=== PATIENT | female | born 1995 | race Caucasian/White ===

== ENCOUNTER 2022-06-14 18:18 | Observation (INO) | payer OTHER ==
[2022-06-14 18:52] VITALS: BMI 39.4
[2022-06-14] MEDS ORDERED: Famotidine/PF 20 mg/2ml Vial SLOW IVP SCH (19:45)
[2022-06-14] MEDS ORDERED: Lactated Ringer's 1,000 ML IV SCH (19:45)
[2022-06-14] MEDS ORDERED: Ondansetron PF 4 MG/2 ML Vial IVP SCH (19:45)
[2022-06-14] MEDS ORDERED: Ondansetron HCl/PF 4 MG in Sodium Chloride 0.9% 50 ML IVPB SCH (19:45)
[2022-06-14 20:05] LABS: #Eosinphils 0.1 10x3/uL (0.0-0.5); #Monocytes 0.3 10x3/uL (0.0-1.1); #Neutrophils 7.5 10x3/uL (1.5-8.4); %Basophils 0.2 % (0.0-2.0); %Eosinophils 0.9 % (0.0-6.0); %Lymphocytes 7.7 % (18.0-47.0); %Monocytes 3.3 % (0.0-10.0); %Neutrophils 87.4 % (40.0-75.0); Mean Corpuscular HGB CONC 32.1 g/dL (32.0-36.0); Mean Corpuscular Hemoglobin 23.7 pg (27.0-33.0); Mean Corpuscular Volume 73.9 fl (81.6-98.3); Mean Platelet Volume 11.2 fl (7.4-10.4); Platelet Count 292 10x3/uL (150-450); RBC Distribution Width 17.4 % (11.5-14.5); Red Blood Cell (RBC) Count 4.22 10x6/uL (3.90-5.03); White Blood Cell (WBC) Count 8.6 10x3/uL (3.5-10.5)
[2022-06-14] MEDS ORDERED: Morphine 4 MG/ML VIAL SLOW IVP SCH (20:30)
[2022-06-14 20:36] LABS: ALT (SGPT) 6 U/L (8-55); AST (SGOT) 11 U/L (5-34); Albumin 3.8 g/dL (3.5-5.0); Alkaline Phosphatase 87 U/L (40-110); Anion Gap 16 mmol/L (10-20); BUN (Urea Nitrogen) 4 mg/dL (7.0-18.7); Bilirubin, Total 0.6 mg/dL (0.2-1.2); Calc. Creatinine Clearance 238 mL/min (70-130); Carbon Dioxide 18 mmol/L (22-29); Chloride 105 mmol/L (98-107); Estimated GFR 126; Globulin 3.1 g/dL (2.4-3.5); Glucose 98 mg/dL (70-105); Potassium 3.7 mmol/L (3.5-5.1); Protein, Total 6.9 g/dL (6.0-8.3); Sodium 135 mmol/L (136-145)
[2022-06-14 21:19] LABS: Bilirubin 1+ (Negative); Blood, Urine Negative (Negative); CAUTI Indications for Culture Pregnancy; Clarity Clear (Clear); Glucose, Urine (Dipstick) Normal (Negative); Ketone, Urine 150 mg/dL (Negative); Leukocyte 25 (Negative); Nitrite Negative (Negative); Protein, Urine (Dipstick) 30 mg/dl (Neg-Trace); pH, Urine 6.5 (5.0-9.0)
[2022-06-14 21:30] LABS: Urine Culture Reflex Yes Yes
[2022-06-14 21:33] LABS: RBC/HPF 0-3 HPF (0-3); Squamous Epithelial 0-3 HPF (0-3); WBC/HPF 0-3 HPF (0-3)
[2022-06-14 21:34] LABS: Bacteria/HPF 1+ HPF (None Seen); Renal Epithelial None Seen HPF (None Seen)
[2022-06-14] MEDS ORDERED: cefTRIAXone\\ROCEPHIN 1 GM in Sodium Chloride 0.9% 100 ML IVPB SCH (21:45)
[2022-06-14] MEDS ORDERED: Dextrose 5%-Lactated Ringers 1,000 ML IV SCH ×2 (21:45→23:45)
[2022-06-14] MEDS ORDERED: Acetaminophen 325 MG TAB PO SCH (22:00)
[2022-06-14] MEDS ORDERED: Acetaminophen 325 MG TAB PO PRN (23:30)
[2022-06-14] MEDS ORDERED: Ondansetron PF 4 MG/2 ML Vial IVP PRN ×2 (23:30)
[2022-06-14] MEDS ORDERED: hydrALAZINE 20 MG/ML VIAL SLOW IVP PRN (23:30)
[2022-06-14] MEDS ORDERED: Morphine 4 MG/ML VIAL SLOW IVP PRN (23:41)
[2022-06-15 03:51] LABS: #Eosinphils 0.1 10x3/uL (0.0-0.5); #Monocytes 0.3 10x3/uL (0.0-1.1); #Neutrophils 4.1 10x3/uL (1.5-8.4); %Basophils 0.2 % (0.0-2.0); %Lymphocytes 21.3 % (18.0-47.0); %Monocytes 5.1 % (0.0-10.0); %Neutrophils 71.9 % (40.0-75.0); Hemoglobin 7.8 g/dL (12.0-15.5); Mean Corpuscular HGB CONC 30.5 g/dL (32.0-36.0); Mean Corpuscular Hemoglobin 23.2 pg (27.0-33.0); Mean Corpuscular Volume 76.2 fl (81.6-98.3); Mean Platelet Volume 11.6 fl (7.4-10.4); Platelet Count 241 10x3/uL (150-450); RBC Distribution Width 17.5 % (11.5-14.5); Red Blood Cell (RBC) Count 3.36 10x6/uL (3.90-5.03); White Blood Cell (WBC) Count 5.7 10x3/uL (3.5-10.5)
[2022-06-15 04:03] LABS: ALT (SGPT) Less than 6 U/L (8-55); AST (SGOT) 9 U/L (5-34); Albumin 2.9 g/dL (3.5-5.0); Alkaline Phosphatase 64 U/L (40-110); Anion Gap 10 mmol/L (10-20); BUN (Urea Nitrogen) Less than 4 mg/dL (7.0-18.7); Bilirubin, Total 0.3 mg/dL (0.2-1.2); Calc. Creatinine Clearance 255 mL/min (70-130); Calcium 8.4 mg/dL (7.8-10.44); Carbon Dioxide 22 mmol/L (22-29); Chloride 107 mmol/L (98-107); Estimated GFR 129; Globulin 2.7 g/dL (2.4-3.5); Glucose 103 mg/dL (70-105); Potassium 3.3 mmol/L (3.5-5.1); Protein, Total 5.6 g/dL (6.0-8.3); Sodium 136 mmol/L (136-145)
[2022-06-15] MEDS ORDERED: Metoclopramide HCl 10 MG/2 ML VIAL IVP SCH (06:00)
[2022-06-15] MEDS ORDERED: Potassium Chloride 10 MEQ in Premix Bag 1 BAG IVPB SCH (07:30)
[2022-06-15] MEDS ORDERED: Famotidine/PF 20 mg/2ml Vial SLOW IVP SCH (09:00)
== END 2022-06-15 11:38 | disposition home health service (06) ==
LOC: CSHLD/OP 18:18 → INTOOBSV 23:49 → CSHLD 23:49
PROVIDERS: ADMIT Obstetrics & Gynecology; ATTEND Obstetrics & Gynecology
DX: O21.1 Hyperemesis gravidarum with metabolic disturbance (principal); O99.512 Diseases of the respiratory system complicating pregnancy, second trimester; J45.909 Unspecified asthma, uncomplicated; O99.612 Diseases of the digestive system complicating pregnancy, second trimester; K80.20 Calculus of gallbladder without cholecystitis without obstruction; O23.42 Unspecified infection of urinary tract in pregnancy, second trimester; N39.0 Urinary tract infection, site not specified; O99.282 Endocrine, nutritional and metabolic diseases complicating pregnancy, second trimester; E86.0 Dehydration; Z3A.22 22 weeks gestation of pregnancy
CPT/HCPCS: 36415; 76705; 80053; 81001; 85025; 87086; 99285; J2270; J2405; J2765; J3480; S0028

== ENCOUNTER 2022-07-23 14:45 | Day surgery (SDC) | payer OTHER | END 2022-07-23 16:20 | disposition home or self-care (01) | LOC: CSHSDC/OP 14:45 | PROVIDERS: ATTEND Obstetrics & Gynecology | DX: O36.0190 Maternal care for anti-D [Rh] antibodies, unspecified trimester, not applicable or unspecified (principal); Z3A.28 28 weeks gestation of pregnancy ==

== ENCOUNTER 2022-10-04 16:08 | Day surgery (SDC) | payer OTHER ==
[2022-10-04 16:35] VITALS: BMI 39.9
[2022-10-04] MEDS ORDERED: hydrALAZINE 20 MG/ML VIAL SLOW IVP PRN (17:10)
[2022-10-04] MEDS ORDERED: Lactated Ringer's 1,000 ML IV SCH (17:30)
[2022-10-04] MEDS ORDERED: Morphine 4 MG/ML VIAL SLOW IVP SCH (18:00)
[2022-10-04] MEDS ORDERED: Acetaminophen 325 MG TAB PO SCH (18:00)
[2022-10-04 18:53] LABS: Bilirubin Neg (Negative); Blood, Urine Negative (Negative); Clarity Clear (Clear); Glucose, Urine (Dipstick) Normal (Negative); Ketone, Urine Negative (Negative); Leukocyte Negative (Negative); Nitrite Negative (Negative); Protein, Urine (Dipstick) Negative (Neg-Trace); Specific Gravity, Urine 1.025 (1.005-1.030); Urobilinogen Normal mg/dL (Less than 2)
[2022-10-04 19:02] LABS: Bacteria/HPF None Seen HPF (None Seen); CAUTI Indications for Culture Pregnancy; RBC/HPF None Seen HPF (0-3); Squamous Epithelial 21-50 HPF (0-3); WBC/HPF 0-3 HPF (0-3)
[2022-10-04 19:04] LABS: Urine Culture Reflex Yes Yes
== END 2022-10-04 19:20 | disposition home or self-care (01) ==
LOC: CSHLD/OP 16:08
PROVIDERS: ATTEND Obstetrics & Gynecology
DX: O26.893 Other specified pregnancy related conditions, third trimester (principal); O99.343 Other mental disorders complicating pregnancy, third trimester; F41.9 Anxiety disorder, unspecified; F32.A Depression, unspecified; O99.513 Diseases of the respiratory system complicating pregnancy, third trimester; J45.909 Unspecified asthma, uncomplicated; O99.613 Diseases of the digestive system complicating pregnancy, third trimester; K80.20 Calculus of gallbladder without cholecystitis without obstruction; O21.2 Late vomiting of pregnancy; Z79.899 Other long term (current) drug therapy; Z3A.38 38 weeks gestation of pregnancy
CPT/HCPCS: 81001; 87086; 99282

== ENCOUNTER 2022-10-12 06:00 | Inpatient (IN) | payer OTHER ==
[~2022-10-12 06:00] MED LIST: Acetaminophen 500 MG TAB PO PRN; Butorphanol Tartrate 1 MG/ML VIAL SLOW IVP PRN; Carboprost 250 MCG/ML AMP IM PRN; Diphenoxylate HCl/Atropine Tablet PO PRN; HYDROcodone/Acetaminophen 5/325 mg Tablet PO PRN; Ibuprofen 800 MG TAB PO PRN; Lactated Ringer's 1,000 ML IV SCH; Lidocaine 1% (PF) 30 ML VIAL SC PRN; Methylergonovine 0.2 MG/ML VIAL IM PRN; Misoprostol 100 MCG TAB VAG SCH; Misoprostol 200 MCG TAB PR PRN; NS w/ Oxytocin 30 units 500 ML IV SCH; Ondansetron PF 4 MG/2 ML Vial IVP PRN; Promethazine HCl 25 MG/ML VIAL IM PRN; Tranexamic Acid 1,000 MG/10 ML VIAL IVP PRN; hydrALAZINE 20 MG/ML VIAL SLOW IVP PRN
[2022-10-12] MEDS ORDERED: fentaNYL 50 mcg/mL 1 mL Vial SLOW IVP PRN (06:31)
[2022-10-12] MEDS ORDERED: Bupivacaine HCl 0.5%/Epinephrine 1:200,000/PF 30 ml Vial ONE (08:00)
[2022-10-12] MEDS ORDERED: Bupivacaine 0.25% HCL 30 ML VIAL ONE (08:00)
[2022-10-12 18:05] LABS: Hemoglobin 8.1 g/dL (12.0-15.5); Mean Corpuscular HGB CONC 28.9 g/dL (32.0-36.0); Mean Corpuscular Hemoglobin 19.8 pg (27.0-33.0); Mean Corpuscular Volume 68.5 fl (81.6-98.3); Mean Platelet Volume 11.2 fl (7.4-10.4); Platelet Count 279 10x3/uL (150-450); RBC Distribution Width 17.5 % (11.5-14.5); Red Blood Cell (RBC) Count 4.09 10x6/uL (3.90-5.03); White Blood Cell (WBC) Count 11.5 10x3/uL (3.5-10.5)
[2022-10-12 18:27] LABS: HBSAg Index 0.12 S/CO (0-0.99); Hep B Surf Ag - L&D Non-Reactive S/CO (NonReactive)
[2022-10-12 18:28] LABS: Syphilis Antibody Nonreactive (Nonreactive); Syphilis Antibody Index 0.04 S/CO (<1.00 Non-Reactive)
[2022-10-12 18:49] VITALS: BMI 40.1
[2022-10-12] MEDS ORDERED: Fentanyl 2 mcg/Bup 0.1% Cadd 100 ML ONE (20:21)
[2022-10-12] MEDS ORDERED: Ondansetron PF 4 MG/2 ML Vial IVP PRN (21:03)
[2022-10-12] MEDS ORDERED: Naloxone HCl 0.4 mg/ml Vial IVP PRN ×2 (21:03)
[2022-10-12] MEDS ORDERED: Promethazine HCl 25 MG/ML VIAL IM PRN (21:03)
[2022-10-12] MEDS ORDERED: Acetaminophen 325 MG TAB PO PRN (21:03)
[2022-10-12] MEDS ORDERED: ePHEDrine Sulfate 50 MG/10 ML VIAL SLOW IVP PRN (21:03)
[2022-10-12] MEDS ORDERED: diphenhydrAMINE 50 MG/ML VIAL IVP PRN (21:03)
[2022-10-12] MEDS ORDERED: Moisturizing Cream (Eucerin) 113 GM JAR TOP PRN (21:03)
[2022-10-12] MEDS ORDERED: Lactated Ringer's 500 ML IV PRN (21:03)
[2022-10-12] MEDS ORDERED: Communication Order-Pharmacy FS SCH (21:15)
[2022-10-13] MEDS: Fentanyl 2 mcg/Bupivacaine 0.1% Cassette 100 ML EPIDURAL SCH ×2 (04:45→11:34)
[2022-10-13] MEDS ORDERED: Misoprostol 200 MCG TAB ONE (13:46)
[2022-10-13] MEDS ORDERED: Lidocaine 1% (PF) 30 ML VIAL ONE (13:50)
[2022-10-13] MEDS ORDERED: Ibuprofen 800 MG TAB PO PRN (15:05)
[2022-10-13] MEDS ORDERED: NS w/ Oxytocin 30 units 500 ML IV SCH (15:45)
[2022-10-13] MEDS ORDERED: hydrALAZINE 20 MG/ML VIAL SLOW IVP PRN (15:45)
[2022-10-13] MEDS ORDERED: Milk Of Magnesia 30 ML UDCUP PO PRN (15:45)
[2022-10-13] MEDS ORDERED: Bisacodyl 10 MG SUPP PR PRN (15:45)
[2022-10-13] MEDS ORDERED: Measles/Mumps/Rubella 10 MCG/0.5 ML VIAL SC ONE (15:45)
[2022-10-13] MEDS ORDERED: diphenhydrAMINE 25 MG CAP PO PRN (15:45)
[2022-10-13] MEDS ORDERED: Promethazine HCl 25 MG/ML VIAL IM PRN (15:45)
[2022-10-13] MEDS ORDERED: Zolpidem Tartrate 5 MG TAB PO PRN (15:45)
[2022-10-13] MEDS ORDERED: Ondansetron PF 4 MG/2 ML Vial IVP PRN (15:45)
[2022-10-13] MEDS ORDERED: Boostrix 0.5 ML (Tdap) VIAL (>/=7 yrs of age) IM ONE (15:45)
[2022-10-13] MEDS ORDERED: Misoprostol 200 MCG TAB VAG PRN (15:45)
[2022-10-13] MEDS ORDERED: Benzocaine-Menthol 82.5 ML CAN TOP PRN (15:45)
[2022-10-13] MEDS ORDERED: Methylergonovine 0.2 MG/ML VIAL IM PRN (15:45)
[2022-10-13] MEDS ORDERED: Preparation H Ointment 28 GM TUBE PR PRN (15:45)
[2022-10-13] MEDS ORDERED: Lanolin Ointment 7 GM TUBE TOP PRN (15:45)
[2022-10-13] MEDS: HYDROcodone/Acetaminophen 5/325 mg Tablet PO PRN (17:25)
[2022-10-13] MEDS: Ferrous Sulfate 325 MG TAB PO SCH (17:30)
[2022-10-13] MEDS: Ibuprofen 800 MG TAB PO SCH (21:25)
[2022-10-13] MEDS: Docusate 100 MG CAP PO SCH (21:25)
[2022-10-14] MEDS: HYDROcodone/Acetaminophen 5/325 mg Tablet PO PRN ×5 (00:11→23:01)
[2022-10-14 04:45] LABS: Hemoglobin 7.2 g/dL (12.0-15.5); Mean Corpuscular HGB CONC 28.7 g/dL (32.0-36.0); Mean Corpuscular Hemoglobin 19.8 pg (27.0-33.0); Mean Corpuscular Volume 69.1 fl (81.6-98.3); Mean Platelet Volume 11.6 fl (7.4-10.4); Platelet Count 272 10x3/uL (150-450); RBC Distribution Width 17.3 % (11.5-14.5); Red Blood Cell (RBC) Count 3.63 10x6/uL (3.90-5.03); White Blood Cell (WBC) Count 11.1 10x3/uL (3.5-10.5)
[2022-10-14] MEDS: Ibuprofen 800 MG TAB PO SCH ×3 (05:15→20:04)
[2022-10-14] MEDS: Prenatal Vitamin 1 TAB PO SCH (08:00)
[2022-10-14] MEDS: Ferrous Sulfate 325 MG TAB PO SCH ×2 (08:02→20:06)
[2022-10-14] MEDS: Docusate 100 MG CAP PO SCH ×2 (08:02→20:04)
[2022-10-15] MEDS: Ibuprofen 800 MG TAB PO SCH ×2 (03:42→13:02)
[2022-10-15 08:40] VITALS: BP 119/71; TEMP 98
[2022-10-15] MEDS: Ferrous Sulfate 325 MG TAB PO SCH (08:48)
[2022-10-15] MEDS: Docusate 100 MG CAP PO SCH (08:48)
[2022-10-15] MEDS: HYDROcodone/Acetaminophen 5/325 mg Tablet PO PRN (08:48)
[2022-10-15] MEDS: Prenatal Vitamin 1 TAB PO SCH (08:49)
== END 2022-10-15 14:20 | disposition home or self-care (01) | DRG 807 ==
LOC: CSHLD 17:06 → CSHPP 10-13 16:06
PROVIDERS: ADMIT Obstetrics & Gynecology; ATTEND Obstetrics & Gynecology
PROC: 10E0XZZ Delivery of Products of Conception, External Approach (ICD-10-PCS; principal; 2022-10-13)
PROC: 10907ZC Drainage of Amniotic Fluid, Therapeutic from Products of Conception, Via Natural or Artificial Opening (ICD-10-PCS; 2022-10-13)
PROC: 10H07YZ Insertion of Other Device into Products of Conception, Via Natural or Artificial Opening (ICD-10-PCS; 2022-10-13)
DX: O26.893 Other specified pregnancy related conditions, third trimester (principal); Z37.0 Single live birth; Z67.11 Type A blood, Rh negative; O71.82 Other specified trauma to perineum and vulva; Z3A.39 39 weeks gestation of pregnancy
CPT/HCPCS: 36415; 85027; 86780; 86850; 86900; 86901; 87340; J2001; S0020

== ENCOUNTER 2023-02-05 08:54 | Emergency (ER) | payer OTHER ==
[2023-02-05] MEDS ORDERED: Ondansetron PF 4 MG/2 ML Vial ONE (09:45)
[2023-02-05] MEDS ORDERED: Ketorolac Tromethamine 30 MG/ML VIAL ONE (09:45)
[2023-02-05 09:50] LABS: #Eosinphils 0.1 10x3/uL (0.0-0.5); #Monocytes 0.3 10x3/uL (0.0-1.1); #Neutrophils 5.5 10x3/uL (1.5-8.4); %Basophils 0.5 % (0.0-2.0); %Eosinophils 1.7 % (0.0-6.0); %Lymphocytes 29.1 % (18.0-47.0); %Monocytes 3.7 % (0.0-10.0); %Neutrophils 64.5 % (40.0-75.0); Hematocrit 32.4 % (34.9-44.5); Hemoglobin 9.6 g/dL (12.0-15.5); Mean Corpuscular HGB CONC 29.6 g/dL (32.0-36.0); Mean Corpuscular Hemoglobin 20.8 pg (27.0-33.0); Mean Corpuscular Volume 70.1 fl (81.6-98.3); Mean Platelet Volume 11.1 fl (7.4-10.4); Platelet Count 342 10x3/uL (150-450); RBC Distribution Width 16.1 % (11.5-14.5); Red Blood Cell (RBC) Count 4.62 10x6/uL (3.90-5.03); White Blood Cell (WBC) Count 8.4 10x3/uL (3.5-10.5)
[2023-02-05 09:54] LABS: ALT (SGPT) 22 U/L (8-55); AST (SGOT) 18 U/L (5-34); Albumin 4.4 g/dL (3.5-5.0); Alkaline Phosphatase 126 U/L (40-110); Anion Gap 14 mmol/L (10-20); BUN (Urea Nitrogen) 7 mg/dL (7.0-18.7); Bilirubin, Total 0.4 mg/dL (0.2-1.2); Calc. Creatinine Clearance 0 mL/min (70-130); Calcium 9.3 mg/dL (7.8-10.44); Carbon Dioxide 24 mmol/L (22-29); Chloride 104 mmol/L (98-107); Estimated GFR 109; Globulin 3.5 g/dL (2.4-3.5); Glucose 105 mg/dL (70-105); Lipase 33 U/L (8-78); Potassium 4.5 mmol/L (3.5-5.1); Protein, Total 7.9 g/dL (6.0-8.3); Sodium 137 mmol/L (136-145)
[2023-02-05 10:07] LABS: BHCG - Serum Negative (NEGATIVE); Pregs Control Background? CLEAR/WHITE (CLR/WHITE); Pregs Control Bar Appear? YES (CONTROL BAR)
[2023-02-05 10:14] LABS: Bilirubin Neg (Negative); Blood, Urine Negative (Negative); Clarity Clear (Clear); Glucose, Urine (Dipstick) Normal (Negative); Ketone, Urine Negative (Negative); Leukocyte Negative (Negative); Nitrite Negative (Negative); Protein, Urine (Dipstick) Negative (Neg-Trace); Urobilinogen Normal mg/dL (Less than 2)
[2023-02-05 10:27] LABS: Bacteria/HPF Rare-Few HPF (None Seen); CAUTI Indications for Culture Pelvic or flank pain; RBC/HPF None Seen HPF (0-3); WBC/HPF 0-3 HPF (0-3)
[2023-02-05 10:28] LABS: Urine Culture Reflex No No
[2023-02-05 10:53] LABS: Microcytosis MODERATE=15-30 cells (100X) (0-5/hpf); Ovalocytes SLIGHT = 2-5 cells (100X) (0-1/hpf); Platelet Adequacy Comment Appears Adequate
[2023-02-05] MEDS ORDERED: Iopamidol 300 61% 100 ML VIAL FS ONE (12:08)
== END 2023-02-05 12:50 | disposition home or self-care (01) ==
LOC: CSHERS 08:54
DX: K52.9 Noninfective gastroenteritis and colitis, unspecified (principal); K80.50 Calculus of bile duct without cholangitis or cholecystitis without obstruction
CPT/HCPCS: 74177; 80053; 81001; 83690; 84703; 85025; 96374; 96375; J1885; J2405; Q9967

== ENCOUNTER 2023-09-03 10:37 | Emergency (ER) | payer OTHER ==
[2023-09-03] MEDS ORDERED: Ondansetron PF 4 MG/2 ML Vial ONE (11:01)
[2023-09-03] MEDS ORDERED: Morphine 4 MG/ML VIAL ONE (11:01)
[2023-09-03 11:26] LABS: Bilirubin Neg (Negative); Blood, Urine Negative (Negative); Clarity Clear (Clear); Glucose, Urine (Dipstick) Normal (Negative); Ketone, Urine Negative (Negative); Leukocyte 100 (Negative); Nitrite Negative (Negative); Protein, Urine (Dipstick) Negative (Neg-Trace); Specific Gravity, Urine 1.015 (1.005-1.030); Urobilinogen Normal mg/dL (Less than 2); pH, Urine 6.5 (5.0-9.0)
[2023-09-03 11:31] LABS: #Basophils 0.03 10x3/uL (0.0-0.2); #Eosinphils 0.14 10x3/uL (0.0-0.5); #Monocytes 0.43 10x3/uL (0.0-1.1); #Neutrophils 3.62 10x3/uL (1.5-8.4); %Basophils 0.5 % (0.0-2.0); %Eosinophils 2.2 % (0.0-6.0); %Lymphocytes 32.9 % (18.0-47.0); %Monocytes 6.8 % (0.0-10.0); %Neutrophils 57.3 % (40.0-75.0); Hematocrit 27.4 % (34.9-44.5); Mean Corpuscular HGB CONC 29.2 g/dL (32.0-36.0); Mean Corpuscular Hemoglobin 19.9 pg (27.0-33.0); Mean Platelet Volume 10.5 fl (7.4-10.4); Platelet Count 291 10x3/uL (150-450); RBC Distribution Width 17.4 % (11.5-14.5); Red Blood Cell (RBC) Count 4.03 10x6/uL (3.90-5.03); White Blood Cell (WBC) Count 6.3 10x3/uL (3.5-10.5)
[2023-09-03 11:39] LABS: ALT (SGPT) 17 U/L (8-55); AST (SGOT) 19 U/L (5-34); Albumin 3.6 g/dL (3.5-5.0); Alkaline Phosphatase 104 U/L (40-110); Anion Gap 12 mmol/L (10-20); BHCG - Serum Negative (NEGATIVE); BUN (Urea Nitrogen) 9 mg/dL (7.0-18.7); Bilirubin, Total 0.2 mg/dL (0.2-1.2); Calc. Creatinine Clearance 0 mL/min (70-130); Calcium 8.9 mg/dL (7.8-10.44); Carbon Dioxide 23 mmol/L (22-29); Chloride 109 mmol/L (98-107); Estimated GFR 119; Globulin 3.4 g/dL (2.4-3.5); Glucose 89 mg/dL (70-105); Lipase 33 U/L (8-78); Magnesium 2.1 mg/dL (1.6-2.6); Potassium 4.5 mmol/L (3.5-5.1); Pregs Control Background? CLEAR/WHITE (CLR/WHITE); Pregs Control Bar Appear? YES (CONTROL BAR); Sodium 139 mmol/L (136-145)
[2023-09-03 11:50] LABS: Bacteria/HPF 1+ HPF (None Seen); CAUTI Indications for Culture Pelvic or flank pain; RBC/HPF None Seen HPF (0-3); Squamous Epithelial 0-3 HPF (0-3); WBC/HPF 0-3 HPF (0-3)
[2023-09-03 11:51] LABS: Urine Culture Reflex No No
[2023-09-03 13:39] LABS: Anisocytosis SLIGHT = 6-15 cells (100X) (0-5/hpf); Hypochromia SLIGHT = 6-15 cells (100X) (0-5/hpf); Microcytosis SLIGHT = 6-15 cells (100X) (0-5/hpf); Poikilocytosis SLIGHT = 6-15 cells (100X) (0-5/hpf)
[2023-09-03 13:40] LABS: Elliptocytes SLIGHT = 2-5 cells (100X) (0-1/hpf); Ovalocytes SLIGHT = 2-5 cells (100X) (0-1/hpf); Platelet Adequacy Comment Appears Adequate
== END 2023-09-03 13:14 ==
LOC: CSHERS 10:37
DX: K80.20 Calculus of gallbladder without cholecystitis without obstruction (principal)
CPT/HCPCS: 76705; 80053; 81001; 83690; 83735; 84703; 85025; 96374; 96375; J2270; J2405